=== PATIENT | female | born 1985 | race American Indian/Alaskan Native ===

== ENCOUNTER 2017-05-01 19:28 | Emergency (ER) | payer OTHER ==
[2017-05-01] MEDS ORDERED: BENADRYL PO ONE (20:47)
[2017-05-01] MEDS ORDERED: DELTASONE PO ONE (20:47)
--- NOTE | 2017-05-01 20:51 | Emergency Department Report ---
HPI - General Chief Complaint: Sore Throat Time Seen by Provider: 05/01/17 20:19 - HPI HPI: Patient is a 31-year-old female presents to ED complaining of rash on palms and hands and face times one day. Patient states a couple days ago she started for throat aching and today she noted some rash on her hands that has gotten worse and on the palm of her hands. Patient states rash is itchy and hurts a bit. She states she was around her nieces 3-4 days ago otherwise no sick exposures. She states last menstrual period was . She denies any fever/chills/nausea/vomiting/abdominal pain/chest pain shortness of breath or any problems. ED Past Medical Hx - Past Medical History Previous Medical History?: No - Surgical History Past Surgical History?: No - Social History Smoking Status: Never Smoker Substance Use Type: None - Medications Home Medications: Home Medications Medication Instructions Recorded Confirmed Last Taken Type Ibuprofen [Motrin] 800 mg PO Q8HR PRN #30 tablet 05/01/17 Unknown Rx Triamcinolone 0.1% [Kenalog 0.1% 1 applic TP TID #1 tube 05/01/17 Unknown Rx CREAM] diphenhydrAMINE [Benadryl CAP] 25 mg PO QHS #20 capsule 05/01/17 Unknown Rx predniSONE [Deltasone] 10 mg PO QDAY #5 tab 05/01/17 Unknown Rx ED Review of Systems ROS: Stated complaint: ALLERGIC REACTION Other details as noted in HPI Constitutional: denies: chills, fever Eyes: denies: eye pain, eye discharge, vision change ENT: denies: ear pain, throat pain Respiratory: denies: cough, shortness of breath, wheezing Cardiovascular: denies: chest pain, palpitations Endocrine: no symptoms reported Gastrointestinal: denies: abdominal pain, nausea, diarrhea Genitourinary: denies: urgency, dysuria, discharge Musculoskeletal: denies: back pain, joint swelling, arthralgia Skin: denies: rash, lesions Neurological: denies: headache, weakness, paresthesias Psychiatric: denies: anxiety, depression Hematological/Lymphatic: denies: easy bleeding, easy bruising Physical Exam - Physical Exam Vital Signs: Vital Signs 05/01/17 05/01/17 19:30 19:37 Temperature 99.9 F H 99.9 F H Pulse Rate 95 H 90 Respiratory 18 18 Rate Blood Pressure 137/94 137/94 O2 Sat by Pulse 96 90 Oximetry Physical Exam: GENERAL: Alert and oriented x3, no apparent distress, Normal Gait, atraumatic. HEAD: Head is normocephalic and a-traumatic. Generalized raised erythematous lesionss on her forehead MOUTH:Mouth is well hydrated and without lesions. Tonsils nonerythematous or swollen, Uvula midline, Tongue not elevated. Mucous membranes are moist. Posterior pharynx clear, no exudate or lesions. Patent airways. NECK: Supple. Non edematous, No lymphadenopathy or thyromegaly. LUNGS: Symetrical with respiration, No wheezing, no rales or crackles, CTAB. HEART: S1, S2 present, regular rate and rhythm without murmur, no rubs, no gallops. Non tender to palpation ABDOMEN: No organomegaly was noted,Positive bowel sounds, soft, and non- distended. . Nontender to palpation on all Quadrants, NO CVA tenderness. BACK: Full range of motion, no spinal tenderness, nontender to palpation. EXTREMITIES/MUSCULOSKELETAL: No cyanosis, clubbing, rash, lesions or edema. Full ROM bilaterally. UE/LE Pulses 2+ bilaterally. SKIN: Generalized erythematous nonraised lesions on the palm of the hands. One 3-4 cm in diameter raised red lesion on the left posterior hand close to the thumb, Warm and dry, ED Course Vital Signs 05/01/17 05/01/17 19:30 19:37 Temperature 99.9 F H 99.9 F H Pulse Rate 95 H 90 Respiratory 18 18 Rate Blood Pressure 137/94 137/94 O2 Sat by Pulse 96 90 Oximetry ED Medical Decision Making - Medical Decision Making 31-year-old female presents acute rash of viral etiology ED course: Patient received prednisone, Benadryl in ED Rapid strep tests ordered. Rapid strep negative. Discussed the patient home medications and instructions on how to take them Discussed the patient will follow up with primary care physician. Disposition patient pressures not resolve on its own to follow-up with pathologist. Discussed the patient to contact with other people's rash could spread Vital signs are normalized patient is in no acute or respiratory distress. - Differential Diagnosis 1.Pitryasis rosea 2. HFMdisease 3. Acute rash 4. Strep/Mcintosh Critical care attestation.: If time is entered above; I have spent that time in minutes in the direct care of this critically ill patient, excluding procedure time. ED Disposition Clinical Impression: Rash and nonspecific skin eruption Disposition: TO HOME OR SELFCARE Is pt being admited?: No Does the pt Need Aspirin: No Condition: Stable Instructions: Hand, Foot, and Mouth Disease (ED), Pityriasis rosea (ED), Viral Exanthem (ED) Additional Instructions: Make sure to follow up with the primary care physician as discussed. Take all your medications as you've been prescribed. If you have any worsening symptoms or develop new symptoms please return to ED immediately. Prescriptions: diphenhydrAMINE [Benadryl CAP] 25 mg PO QHS #20 capsule Ibuprofen [Motrin] 800 mg PO Q8HR PRN #30 tablet PRN Reason: Pain predniSONE [Deltasone] 10 mg PO QDAY #5 tab Triamcinolone 0.1% [Kenalog 0.1% CREAM] 1 applic TP TID #1 tube Referrals: PRIMARY CARE, [Primary Care Provider] - 3-5 Days [facility] [Outside] - 3-5 Days [facility] [Outside] - 3-5 Days [facility] [Outside] - 3-5 Days Forms: Accompanied Note, Work/School Release Form(ED) Time of Disposition: 21:46
[2017-05-01] MEDS ORDERED: MOTRIN PO ONE (20:58)
[2017-05-01 22:12] VITALS: BP 124/78
== END 2017-05-01 22:19 | disposition home or self-care (01) ==
LOC: ED 19:28
DX: R21 Rash and other nonspecific skin eruption (principal)
CPT/HCPCS: 87116; 87430; 99282; J7512

== ENCOUNTER 2021-05-28 16:23 | Emergency (ER) | payer SELFPAY ==
[2021-05-28] MEDS ORDERED: ASPIRIN 325 MG TAB PO ONE (16:47)
--- NOTE | 2021-05-28 17:09 | Emergency Department Report ---
ED General Adult HPI - General Chief complaint: Chest Pain Stated complaint: CHEST PAIN Time Seen by Provider: 05/28/21 17:01 Source: patient Mode of arrival: Ambulatory Limitations: No Limitations - History of Present Illness Initial comments: Patient is a 35 years old female with no significant past medical history. Patient presented to the ER complaining of substernal chest pain aching in nature with no radiation. Patient stated that pain started this morning. Patient denies any shortness of breath, fever or chills. Patient stated that she has some sore throat and her sister diagnosed with strep throat recently. She also added that she draw from [place] to [place]. -: This morning Location: chest Radiation: non-radiation Quality: aching Consistency: intermittent Associated Symptoms: denies other symptoms, chest pain Treatments Prior to Arrival: none - Related Data Previous Rx's Medication Instructions Recorded Last Taken Type Ibuprofen [Motrin] 800 mg PO Q8HR PRN #30 tablet 05/01/17 Unknown Rx Triamcinolone 0.1% [Kenalog 0.1% 1 applic TP TID #1 tube 05/01/17 Unknown Rx CREAM] diphenhydrAMINE [Benadryl CAP] 25 mg PO QHS #20 capsule 05/01/17 Unknown Rx predniSONE 10 mg PO QDAY #5 tab 05/01/17 Unknown Rx Allergies Allergy/AdvReac Type Severity Reaction Status Date / Time No Known Allergies Allergy Verified 05/28/21 16:47 ED Review of Systems ROS: Stated complaint: CHEST PAIN Other details as noted in HPI Comment: All other systems reviewed and negative Constitutional: denies: chills, fever Respiratory: denies: cough, shortness of breath, SOB with exertion Cardiovascular: chest pain Gastrointestinal: denies: abdominal pain, nausea, vomiting, diarrhea, constipation, hematemesis, hematochezia Musculoskeletal: denies: back pain Neurological: denies: headache, weakness, numbness, paresthesias, confusion ED Past Medical Hx - Social History Smoking Status: Never Smoker Substance Use Type: None - Medications Home Medications: Home Medications Medication Instructions Recorded Confirmed Last Taken Type Ibuprofen [Motrin] 800 mg PO Q8HR PRN #30 tablet 05/01/17 Unknown Rx Triamcinolone 0.1% [Kenalog 0.1% 1 applic TP TID #1 tube 05/01/17 Unknown Rx CREAM] diphenhydrAMINE [Benadryl CAP] 25 mg PO QHS #20 capsule 05/01/17 Unknown Rx predniSONE 10 mg PO QDAY #5 tab 05/01/17 Unknown Rx ED Physical Exam - General Limitations: No Limitations General appearance: alert, in no apparent distress - Head Head exam: Present: atraumatic, normocephalic, normal inspection - Eye Eye exam: Present: normal appearance, PERRL - ENT ENT exam: Present: normal exam, normal orophraynx, mucous membranes moist - Neck Neck exam: Present: normal inspection, full ROM. Absent: tenderness, meningismus - Respiratory Respiratory exam: Present: normal lung sounds bilaterally - Cardiovascular Cardiovascular Exam: Present: regular rate, normal rhythm, normal heart sounds - GI/Abdominal GI/Abdominal exam: Present: soft, normal bowel sounds. Absent: distended, tenderness, guarding, rebound, rigid, organomegaly, mass, bruit, pulsatile mass, hernia - Extremities Exam Extremities exam: Present: normal inspection, full ROM, normal capillary refill. Absent: tenderness - Back Exam Back exam: Present: normal inspection, full ROM. Absent: CVA tenderness (R), CVA tenderness (L) - Neurological Exam Neurological exam: Present: alert, oriented X3, CN II-XII intact, normal gait, reflexes normal. Absent: motor sensory deficit - Psychiatric Psychiatric exam: Present: normal mood - Skin Skin exam: Present: warm, intact, normal color ED Course Vital Signs 05/28/21 16:30 Temperature 98 F Pulse Rate 112 H Respiratory 20 Rate Blood Pressure 155/100 [Left] O2 Sat by Pulse 100 Oximetry ED Medical Decision Making - Lab Data Result diagrams: 05/28/21 17:16 05/28/21 17:16 - EKG Data -: EKG Interpreted by [place] EKG shows normal: sinus rhythm Rate: normal - EKG Data Interpretation: no acute changes - Radiology Data Radiology results: report reviewed - Medical Decision Making Patient is a 35 years old female with no significant past medical history. Patient presented to the ER complaining of substernal chest pain aching in nature with no radiation. Patient stated that pain started this morning. Patient denies any shortness of breath, fever or chills. Patient stated that she has some sore throat and her sister diagnosed with strep throat recently. She also added that she draw from [place] to [place]. EKG showed no ST elevation or depression. Labs reviewed and is unremarkable except D-dimer slightly elevated. CTA chest has been ordered. Critical care attestation.: If time is entered above; I have spent that time in minutes in the direct care of this critically ill patient, excluding procedure time. ED Disposition Clinical Impression: Acute chest pain Disposition: HOME / SELF CARE / HOMELESS Is pt being admited?: No Condition: Stable Instructions: Chest Pain (ED), Nonspecific Chest Pain, Adult Referrals: PRIMARY CARE, [Primary Care Provider] - 3-5 Days
--- NOTE | 2021-05-28 17:11 | XRay Report ---
CHEST 2 VIEWS INDICATION / CLINICAL INFORMATION: Chest pain. COMPARISON: None available. FINDINGS: SUPPORT DEVICES: None. HEART / MEDIASTINUM: The heart size and pulmonary vasculature are normal. The aorta is normal in demarcus myriam. LUNGS / PLEURA: No significant pulmonary or pleural abnormality. No pneumothorax. ADDITIONAL FINDINGS: No significant additional findings. IMPRESSION: No acute findings. Signer Name: Iain Johnson MD Signed: 05/28/2021 5:06 PM Workstation Name: [id number]
[2021-05-28 18:28] LABS: Basophils # (Auto) 0.1 K/mm3 (0.0-0.1); Basophils % (Auto) 1.3 % (0.0-1.8); Eosinophils # (Auto) 0.1 K/mm3 (0.0-0.4); Eosinophils % (Auto) 0.6 % (0.0-4.3); Hematocrit 42.1 % (30.3-42.9); Lymphocytes # (Auto) 3.3 K/mm3 (1.2-5.4); Lymphocytes % (Auto) 32.2 % (13.4-35.0); Mean Corpuscular HGB Conc 33 % (30-34); Mean Corpuscular Volume 91 fl (79-97); Monocytes # (Auto) 0.4 K/mm3 (0.0-0.8); Monocytes % (Auto) 4.2 % (0.0-7.3); Platelet Count 286 K/mm3 (140-440); Red Blood Count 4.62 M/mm3 (3.65-5.03); Red Cell Distribution Width 13.8 % (13.2-15.2)
[2021-05-28 18:44] LABS: Alanine Aminotransferase 22 units/L (7-56); Albumin 4.4 g/dL (3.9-5); BUN/Creatinine Ratio 10; Blood Urea Nitrogen 8 mg/dL (7-17); Calcium 8.9 mg/dL (8.4-10.2); Hemolysis Index 4
--- NOTE | 2021-05-28 21:01 | Cat Scan Report ---
CTA chest with contrast INDICATION : CHEST PAIN WITH ELEVATED D-DIMER. TECHNIQUE: Axial imaging performed through the chest, with contrast bolus timing set to maximize opa cification of the pulmonary arteries. 3-plane MIP reformatted images were obtained. All CT scans at this location are performed using CT dose reduction for ALARA by means of automated exposure control. 75 mL of intravenous contrast administered. COMPARISON: None FINDINGS: Bolus/PTE: Contrast bolus timing is adequate. No filling defect is present to suggest PTE. Mediastinum: Heart and great vessels appear normal. No pathologic mediastinal adenopathy. Lungs: Lungs are clear. Upper abdomen: Limited imaging of the upper abdomen shows nothing acute. There is moderate hepatic steatosis and right renal atrophy/scarring. Bones: Degenerative changes in the spine with nothing acute. IMPRESSION: Negative for PTE. Clear lungs. Signer Name: Nael Maynard MD Signed: 05/28/2021 8:56 PM Workstation Name: [id number]
[2021-05-29 00:26] VITALS: BP 148/98
--- NOTE | 2021-05-29 09:39 | Electrocardiograph Report ---
[facility] Test Date: 2021-05-28 Test Time: 16:34:38 Pat Name: MARCOS JO Department: Room: Gender: F Practice Consultant: TV : 1985 Requested By: CARLOS COLLIER Order Number: [id number] Reading MD: Lev Mcbride Measurements Intervals [place] Rate: 109 P: 52 IA: 184 QRS: 6 QRSD: 95 T: 49 QT: 337 QTc: 454 Interpretive Statements Sinus tachycardia No previous ECG available for comparison Electronically Signed On 05-29-2021 9:38:52 EST by Lev Mcbride
== END 2021-05-29 00:24 | disposition home or self-care (01) ==
LOC: ED 16:23
DX: R07.89 Other chest pain (principal); Z79.899 Other long term (current) drug therapy
CPT/HCPCS: 36415; 71046; 71275; 80053; 84484; 84703; 85025; 85379; 93005; 99284; Q9967